=== PATIENT | male | born 1975 | race Caucasian/White ===

== ENCOUNTER 2018-07-07 13:43 | Emergency (ER) | payer BC ==
[2018-07-07 13:53] VITALS: BP 123/69
--- NOTE | 2018-07-07 14:11 | UC ---
Hand/Wrist HPI - HPI Summary HPI Summary: 43-year-old male comes in with a chief complaint of left thumb pain. 6 to 8 weeks ago when he was playing soccer he injured his left thumb. Overall the thumb has improved but he still having intermittent PIP pain with some different movements of the thumb. No numbness. The pain only comes with certain movements he does not have the patient rest. - History Of Current Complaint Chief Complaint: UCUpperExtremity Stated Complaint: THUMB PAIN Time Seen by Provider: 07/07/18 13:58 Pain Intensity: 0 - Allergies/Home Medications Allergies/Adverse Reactions: Allergies Allergy/AdvReac Type Severity Reaction Status Date / Time No Known Allergies Allergy Verified 07/07/18 13:53 Home Medications: Home Medications NK [No Home Medications Reported] 07/07/18 [History Confirmed 07/07/18] PMH/Surg Hx/FS Hx/Imm Hx Previously Healthy: Yes - Surgical History Surgical History: Yes Surgery Procedure, Year, and Place: ORAL SURGERY - Family History Known Family History: Positive: Non-Contributory - Social History Alcohol Use: None Substance Use Type: None Smoking Status (MU): Never Smoked Tobacco Review of Systems All Other Systems Reviewed And Are Negative: Yes Constitutional: Positive: Negative Skin: Positive: Negative Eyes: Positive: Negative ENT: Positive: Negative Respiratory: Positive: Negative Cardiovascular: Positive: Negative Gastrointestinal: Positive: Negative Motor: Positive: Negative Neurovascular: Positive: Negative Musculoskeletal: Positive: Other: - see hpi Neurological: Positive: Negative Psychological: Positive: Negative Is Patient Immunocompromised?: No Physical Exam Triage Information Reviewed: Yes Appearance: Well-Appearing, No Pain Distress, Well-Nourished Vital Signs: Initial Vital Signs Temp 98.8 F 07/07/18 13:51 Pulse 78 07/07/18 13:51 Resp 18 07/07/18 13:51 BP 123/69 07/07/18 13:51 Pulse Ox 100 07/07/18 13:51 Vital Signs Reviewed: Yes Eye Exam: Normal Eyes: Positive: Conjunctiva Clear Neck: Positive: Supple Respiratory: Positive: No respiratory distress Musculoskeletal: Positive: Other: - Left thumb FROM. C/O pain at PIP primarily with flexion . No swelling. No erythema. Neurological: Positive: Alert, Muscle Tone Normal Psychological Exam: Normal Psychological: Positive: Age Appropriate Behavior Skin Exam: Normal Hand/Wrist Course/Dx - Course Course Of Treatment: Thumb with FROM and full strength. No fxr seen on x-ray. F/U Orthopedics Hands. - Differential Dx/Diagnosis Provider Diagnosis: Pain of left thumb Discharge - Sign-Out/Discharge Documenting (check all that apply): Patient Departure All imaging exams completed and their final reports reviewed: Yes - Discharge Plan Condition: Stable Disposition: HOME Patient Education Materials: Finger Sprain (ED) Referrals: Kiley Siddiqi MD [Medical Doctor] - Additional Instructions: FOLLOW UP WITH THE ORTHOPEDIC HAND SPECIALIST. GET REEVALUATED SOONER IF YOUR CONDITION WORSENS OR ANY QUESTIONS OR CONCERNS. - Billing Disposition and Condition Condition: STABLE Disposition: Home
== END 2018-07-07 14:23 | disposition home or self-care (01) ==
LOC: UCEAST 13:43
DX: M79.645 Pain in left finger(s) (principal)
CPT/HCPCS: 99211; G0463